=== PATIENT | female | born 1935 | race Caucasian/White ===

== ENCOUNTER 2022-01-20 13:09 | Inpatient (IN) | payer MEDICARE, OTHER ==
[~2022-01-20] VITALS: Ht 157.5 cm; Wt 78.2 kg
[2022-01-20] VITALS (22 sets, daily range): BP systolic 68–191; BP diastolic 26–162
[2022-01-20] MEDS ORDERED: diphenhydrAMINE 25mg capsule PO PRN (13:40)
[2022-01-20] MEDS ORDERED: LORazepam 0.5 MG tablet PO PRN (13:40)
[2022-01-20] MEDS ORDERED: VITAMIN D3 PO (14:16)
[2022-01-20] MEDS ORDERED: TRAZ-251 PO (14:16)
[2022-01-20] MEDS ORDERED: HYDR-3717 PO ×2 (14:16→23:21)
[2022-01-20] MEDS ORDERED: AMLO5TAB16 PO (14:16)
[2022-01-20] MEDS ORDERED: HYDR-3964 PO (14:16)
[2022-01-20] MEDS ORDERED: POTA8TAB69 PO (14:16)
[2022-01-20] MEDS ORDERED: FURO20TA4 PO (14:16)
[2022-01-20] MEDS ORDERED: OMEP40CA21 PO (14:16)
[2022-01-20] MEDS ORDERED: LATA2.5D14 EACHEYE (14:16)
[2022-01-20] MEDS ORDERED: LEVO88TA2 PO (14:16)
[2022-01-20] MEDS ORDERED: ENAL-79 PO (14:16)
[2022-01-20] MEDS ORDERED: FERR325T28 PO (14:17)
[2022-01-20] MEDS ORDERED: verapamil 2.5 mg/ml inj IV ONE (17:59)
[2022-01-20] MEDS ORDERED: iohexol 350MG/ML 100ml bottle IV ONE ×3 (17:59→20:26)
[2022-01-20] MEDS ORDERED: nitroGLYCERIN-Tridil 50MG/D5W 250 ML IV ONE (17:59)
[2022-01-20] MEDS ORDERED: heparin 1,000unit/ml 10ml vial 10 ML ONE (17:59)
[2022-01-20] MEDS ORDERED: LIDOcaine 1%/PF 5ML 10 MG/ML VIAL ONE (17:59)
[2022-01-20] MEDS ORDERED: fentaNYL/PF 50MCG/1 ML 2ML syringe ONE (18:00)
[2022-01-20] MEDS ORDERED: midazolam 1 mg/ML 2ml injection ONE (18:00)
[2022-01-20] MEDS ORDERED: aspirin 325mg tablet ONE (19:08)
[2022-01-20] MEDS ORDERED: clopidogrel 300mg tablet ONE (19:08)
[2022-01-20] MEDS ORDERED: hydrALAZINE 20mg/ml inj. IV ONE (19:24)
--- NOTE | 2022-01-20 19:45 | NUR ---
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 Bedside report received from REYES Avery. Patient with arterial access to right radial artery and venous access to right groin. Hematomas to both sites. Manual pressure applied. Monitoring patient's BP at this time.
--- NOTE | 2022-01-20 19:55 | NUR ---
Manual pressure to groin site. Radial site stable with pressure dressing in place. Femstop applied to groin. Monitoring vital signs.
[2022-01-20] MEDS ORDERED: phenylephrine 10mg/ml inj. ONE (20:22)
[2022-01-20] MEDS ORDERED: morphine 2 MG/ML inj. syringe IV PRN (20:55)
--- NOTE | 2022-01-20 21:26 | NUR ---
Vasc band removed from right radial. Bruising present. Stable with pressure dressing applied.
--- NOTE | 2022-01-20 21:30 | NUR ---
Osvaldo Corrales RN notified pharmacy that Short Stay Crash Cart is unsealed and in breakroom. Pharmacy stated someone will come lock it up.
[2022-01-20 21:41] LABS: ISTAT HGB ART 12.6 g/dl (12.0-16.0); ISTAT Hct ART 37 %PCV (35-48); ISTAT O2 SATURATION ARTERIAL 97 % (95-98); ISTAT SOURCE ART
--- NOTE | 2022-01-20 22:20 | NUR ---
Patient in room PCU 3022. I have received report from edie and had the opportunity to ask questions and assume patient care.
--- NOTE | 2022-01-20 22:30 | NUR ---
Patient admitted to 3022. Bedside report given to NAUN Jones and Gracia, corporate controller. Femstop in place to right groin. Vital signs stable. All questions answered.
[2022-01-20] MEDS ORDERED: HYDROcodone/acetaminophen 5mg/325mg tablet PO PRN ×2 (22:45→22:55)
[2022-01-20] MEDS ORDERED: aspirin 81mg tab.chew PO ONE (22:50)
[2022-01-21] MEDS: normal saline 1,000 ML IV SCH ×3 (00:02→09:41)
[2022-01-21 00:03] LABS: BASOPHILS # (AUTO) 0.1 X10'3 (0-0.2); BASOPHILS % (AUTO) 0.8 % (0-1); EOSINOPHILS % (AUTO) 0.1 % (0-6); LYMPHOCYTES # (AUTO) 1.1 X10'3 (1.1-4.8); LYMPHOCYTES % (AUTO) 12.6 % (21-51); MEAN CORPUSCULAR HEMOGLOBIN 27.8 PG (27.0-31.0); MEAN CORPUSCULAR HGB CONC 33.4 g/dL (33.0-36.5); MEAN CORPUSCULAR VOLUME 83.1 FL (78-98); MEAN PLATELET VOLUME 7.2 FL (7.4-10.4); MONOCYTES # (AUTO) 0.4 X10'3 (0-0.9); NEUTROPHILS # (AUTO) 7.2 X10'3 (1.8-7.7); NEUTROPHILS % (AUTO) 81.5 % (42-75); PLATELET COUNT 248 X10'3 (140-440); RED CELL DISTRIBUTION WIDTH 14.6 % (11.5-14.5); WHITE BLOOD COUNT 8.9 X10'3 (4.5-11.0)
[2022-01-21 02:00] VITALS: BP 153/63
[2022-01-21] MEDS: HYDROcodone/acetaminophen 10/325mg tab PO PRN ×2 (04:27→09:33)
[2022-01-21] MEDS ORDERED: hydrOXYzine 10 MG tablet PO PRN (06:10)
--- NOTE | 2022-01-21 06:15 | NUR ---
Problems reprioritized. Patient report given, questions answered & plan of care reviewed with aby.
--- NOTE | 2022-01-21 06:15 | NUR ---
Patient in room PCU 3022. I have received report from Robert MAGALLON and had the opportunity to ask questions and assume patient care.
[2022-01-21 07:27] VITALS: BP 123/56
[2022-01-21] MEDS ORDERED: cholecalciferol (vitamin D3) 1,000 unit (25mcg) tablet PO SCH (08:00)
[2022-01-21] MEDS ORDERED: ferrous sulfate 325mg tablet PO SCH (08:00)
[2022-01-21] MEDS ORDERED: traZODone 50mg tablet PO SCH (08:00)
[2022-01-21] MEDS ORDERED: levoTHYROXINE 88mcg tablet PO SCH (08:00)
[2022-01-21] MEDS ORDERED: clopidogrel 75mg tablet PO SCH (08:00)
[2022-01-21] MEDS ORDERED: latanoprost 0.005% 2.5ml ophthalmic drops EACHEYE SCH (08:00)
[2022-01-21] MEDS ORDERED: pantoprazole 40mg Tablet.DR PO SCH (08:00)
[2022-01-21] MEDS ORDERED: amLODIPine 5mg tablet PO SCH (08:00)
[2022-01-21] MEDS ORDERED: furosemide 20MG tablet PO SCH (08:00)
[2022-01-21] MEDS ORDERED: lisinopril 20mg tablet PO SCH (08:00)
[2022-01-21] MEDS ORDERED: potassium chloride 8mEq ER tablet PO SCH (08:00)
[2022-01-21] MEDS ORDERED: aspirin 81mg tab.chew PO SCH (08:30)
[2022-01-21 09:31] LABS: ISTAT Hct MIX 39 %PCV (35-48); ISTAT O2 SATURATION MIX VENOUS 73 % (60-80); ISTAT SOURCE VEN
[2022-01-21] MEDS ORDERED: ATOR40TA PO (11:22)
[2022-01-21] MEDS ORDERED: CLOP75TA34 PO (11:22)
[2022-01-21] MEDS ORDERED: ASPI81TA53 PO (11:22)
[2022-01-21 12:14] LABS: BASOPHILS % (AUTO) 0.4 % (0-1); EOSINOPHILS % (AUTO) 0 % (0-6); HEMATOCRIT 32.2 % (35.0-45.0); HEMOGLOBIN 10.8 g/dl (12.0-16.0); LYMPHOCYTES # (AUTO) 1.7 X10'3 (1.1-4.8); LYMPHOCYTES % (AUTO) 22.3 % (21-51); MEAN CORPUSCULAR HGB CONC 33.6 g/dL (33.0-36.5); MEAN CORPUSCULAR VOLUME 83.4 FL (78-98); MEAN PLATELET VOLUME 6.9 FL (7.4-10.4); MONOCYTES # (AUTO) 0.7 X10'3 (0-0.9); MONOCYTES % (AUTO) 8.9 % (2-12); NEUTROPHILS # (AUTO) 5.2 X10'3 (1.8-7.7); NEUTROPHILS % (AUTO) 68.4 % (42-75); PLATELET COUNT 225 X10'3 (140-440); RED BLOOD COUNT 3.86 X10'6 (4.20-5.60); RED CELL DISTRIBUTION WIDTH 14.4 % (11.5-14.5); WHITE BLOOD COUNT 7.6 X10'3 (4.5-11.0)
[2022-01-21 12:26] VITALS: BP 138/59
--- NOTE | 2022-01-21 16:36 | NUR ---
Patient stable for discharge per Dr. Resendiz. All discharge instructions reviewed with patient and all questions answered. Pt verbalized understanding. All new prescriptions collected from [facility] in [place] and Plavix is in hand. PIV discontinued cannula intact. Tele discontinued. All belongings collected and sent with patient. Wheeled to lobby via nursing staff and taken home by family friend.
== END 2022-01-21 17:47 | disposition home or self-care (01) | DRG 247 ==
LOC: SSTAY O 13:09 → UNDOADMOB 19:30 → PCU 3S 19:30 → OBSVTOIN 21:55
PROVIDERS: ADMIT Student in an Organized Health Care Education/Training Program; ATTEND Student in an Organized Health Care Education/Training Program
PROC: 027034Z Dilation of Coronary Artery, One Artery with Drug-eluting Intraluminal Device, Percutaneous Approach (ICD-10-PCS; principal; 2022-01-20)
PROC: 4A023N8 Measurement of Cardiac Sampling and Pressure, Bilateral, Percutaneous Approach (ICD-10-PCS; 2022-01-20)
PROC: B2111ZZ Fluoroscopy of Multiple Coronary Arteries using Low Osmolar Contrast (ICD-10-PCS; 2022-01-20)
PROC: B32T1ZZ Computerized Tomography (CT Scan) of Left Pulmonary Artery using Low Osmolar Contrast (ICD-10-PCS; 2022-01-20)
PROC: B3201ZZ Computerized Tomography (CT Scan) of Thoracic Aorta using Low Osmolar Contrast (ICD-10-PCS; 2022-01-20)
PROC: B32S1ZZ Computerized Tomography (CT Scan) of Right Pulmonary Artery using Low Osmolar Contrast (ICD-10-PCS; 2022-01-20)
PROC: B42H1ZZ Computerized Tomography (CT Scan) of Bilateral Lower Extremity Arteries using Low Osmolar Contrast (ICD-10-PCS; 2022-01-20)
DX: I25.10 Atherosclerotic heart disease of native coronary artery without angina pectoris (principal); E03.9 Hypothyroidism, unspecified; E11.9 Type 2 diabetes mellitus without complications; E78.5 Hyperlipidemia, unspecified; I95.9 Hypotension, unspecified; I08.0 Rheumatic disorders of both mitral and aortic valves; I10 Essential (primary) hypertension; Z87.891 Personal history of nicotine dependence
CPT/HCPCS: 36415; 71275; 74174; 82803; 82948; 85014; 85025; 93005; 97116; 97161; 97530; 99152; 99153; A4314; A4620; A5120; A6258; A6449; C1725; C1751; C1769; C1874; C1894; C9600; G0378; J0360; J1644; J2250; J2270; J2370; J3010; J3490; J7030; Q0163; Q9967

== ENCOUNTER 2022-03-20 11:53 | Outpatient (CLI) | payer MEDICARE, MEDICAID ==
[~2022-03-20 11:53] MED LIST: AMLO5TAB16 PO; ASPI81TA53 PO; CLOP75TA34 PO; ENAL-79 PO; FERR325T28 PO; FURO20TA4 PO; HYDR-3717 PO; HYDR-3964 PO; LATA2.5D14 EACHEYE; LEVO88TA2 PO; OMEP40CA21 PO; POTA8TAB69 PO; TRAZ-251 PO; VITAMIN D3 PO
[2022-03-20 13:12] LABS: BASOPHILS # (AUTO) 0.1 X10'3 (0-0.2); BASOPHILS % (AUTO) 1.9 % (0-1); EOSINOPHILS # (AUTO) 0.2 X10'3 (0-0.9); EOSINOPHILS % (AUTO) 3.4 % (0-6); HEMATOCRIT 39.5 % (35.0-45.0); HEMOGLOBIN 13.1 g/dl (12.0-16.0); LYMPHOCYTES # (AUTO) 1.2 X10'3 (1.1-4.8); LYMPHOCYTES % (AUTO) 26.2 % (21-51); MEAN CORPUSCULAR HEMOGLOBIN 28.2 PG (27.0-31.0); MEAN CORPUSCULAR HGB CONC 33.2 g/dL (33.0-36.5); MEAN CORPUSCULAR VOLUME 84.9 FL (78-98); MEAN PLATELET VOLUME 6.8 FL (7.4-10.4); MONOCYTES # (AUTO) 0.5 X10'3 (0-0.9); MONOCYTES % (AUTO) 10.3 % (2-12); NEUTROPHILS # (AUTO) 2.6 X10'3 (1.8-7.7); NEUTROPHILS % (AUTO) 58.2 % (42-75); PLATELET COUNT 260 X10'3 (140-440); RED BLOOD COUNT 4.65 X10'6 (4.20-5.60); RED CELL DISTRIBUTION WIDTH 14.1 % (11.5-14.5); WHITE BLOOD COUNT 4.5 X10'3 (4.5-11.0)
[2022-03-20 13:23] LABS: APTT 31 SECONDS (22-32)
[2022-03-20 13:25] LABS: ALANINE AMINOTRANSFERASE 34 U/L (12-78); ALBUMIN/GLOBULIN RATIO 0.8 (1.1-1.5); ALKALINE PHOSPHATASE 104 IU/L (46-116); ANION GAP 6 (8-16); ASPARTATE AMINO TRANSFERASE 38 U/L (10-37); BILIRUBIN,TOTAL 0.3 MG/DL (0.1-1.0); BLOOD UREA NITROGEN 13 MG/DL (7-18); BUN/CREATININE RATIO 14.3 (6.6-38.0); CALCIUM 9.4 MG/DL (8.5-10.1); CHLORIDE 103 MMOL/L (99-107); CREATININE 0.91 MG/DL (0.40-0.90); GLUCOSE 105 MG/DL (70-104); SODIUM 139 MMOL/L (135-145); TOTAL PROTEIN 6.9 G/DL (6.4-8.2); eGFR 59 ML/MIN
[2022-03-20] MEDS ORDERED: IODIXANOL 320 MG/ML INFUS..BTL 100ML IV ONE (13:38)
== END 2022-03-20 23:59 | disposition home or self-care (01) ==
LOC: RAD 11:53
PROVIDERS: ATTEND Internal Medicine Cardiovascular Disease
DX: Z01.818 Encounter for other preprocedural examination (principal); K83.8 Other specified diseases of biliary tract; I70.0 Atherosclerosis of aorta; I35.0 Nonrheumatic aortic (valve) stenosis; M47.815 Spondylosis without myelopathy or radiculopathy, thoracolumbar region; M19.012 Primary osteoarthritis, left shoulder; Z87.891 Personal history of nicotine dependence; Z79.82 Long term (current) use of aspirin; Z79.899 Other long term (current) drug therapy; Z90.49 Acquired absence of other specified parts of digestive tract
CPT/HCPCS: 36415; 71046; 71275; 74174; 80053; 85025; 85610; 85730; 94010; 94727; 94729; J3490; Q9967; 71250; 71260

== ENCOUNTER 2022-03-26 08:46 | Outpatient (CLI) | payer MEDICARE, MEDICAID ==
[~2022-03-26] VITALS: Ht 147.3 cm; Wt 78.9 kg
[2022-03-26 15:56] VITALS: BP 209/71
--- NOTE | 2022-03-26 15:57 | NUR ---
Patient and Friend Virginie were in the [facility] clinic today to consult with Dr. Farmer, Dr. Airam Resendiz and Dr. Davis. [facility] Walk test attempted, patient unsteady and unable to complete the test. Vital signs measured. Patient education reviewed and questions answered.
== END 2022-03-26 23:59 | disposition home or self-care (01) ==
LOC: TAVR 08:46
PROVIDERS: ATTEND Internal Medicine Cardiovascular Disease
DX: Z13.6 Encounter for screening for cardiovascular disorders (principal)

== ENCOUNTER 2023-08-07 10:30 | Inpatient (IN) | payer MEDICARE, MEDICAID ==
[~2023-08-07] VITALS: Ht 149.9 cm; Wt 66.5 kg
[2023-08-07] VITALS (7 sets, daily range): BP systolic 120–220; BP diastolic 54–100; PULSE 73–86; RESP 17–22; TEMP 97.5–98.5; O2SAT 90–97
[~2023-08-07 10:30] MED LIST changes: -AMLO5TAB16 PO; -ASPI81TA53 PO; +ATOR40TA71 PO; +CARB15DR EACHEYE; +CARB200C7 PO; +CARV6.253 PO; +CHLO25TA11 PO; +CHOL100025 PO; +CLOP-32 PO; -CLOP75TA34 PO; -ENAL-79 PO; -HYDR-3717 PO; +LIDOCAINE 5% TOP; +NOR5T PO; +POLY119P2 PO; -VITAMIN D3 PO
[2023-08-07 11:35] LABS: BASOPHILS # (AUTO) 0.1 X10'3 (0-0.2); BASOPHILS % (AUTO) 0.7 % (0-1); EOSINOPHILS % (AUTO) 0.1 % (0-6); HEMATOCRIT 26.2 % (35.0-45.0); HEMOGLOBIN 9.1 g/dl (12.0-16.0); LYMPHOCYTES # (AUTO) 0.9 X10'3 (1.1-4.8); LYMPHOCYTES % (AUTO) 11.4 % (21-51); MEAN CORPUSCULAR HEMOGLOBIN 30.9 PG (27.0-31.0); MEAN CORPUSCULAR HGB CONC 34.8 g/dL (33.0-36.5); MEAN CORPUSCULAR VOLUME 88.8 FL (78-98); MEAN PLATELET VOLUME 7.2 FL (7.4-10.4); MONOCYTES # (AUTO) 0.6 X10'3 (0-0.9); MONOCYTES % (AUTO) 7.6 % (2-12); NEUTROPHILS # (AUTO) 6.2 X10'3 (1.8-7.7); NEUTROPHILS % (AUTO) 80.2 % (42-75); PLATELET COUNT 280 X10'3 (140-440); RED BLOOD COUNT 2.96 X10'6 (4.20-5.60); RED CELL DISTRIBUTION WIDTH 16.8 % (11.5-14.5); WHITE BLOOD COUNT 7.7 X10'3 (4.5-11.0)
[2023-08-07] MEDS ORDERED: magnesium 4gm in 100ml NS 100 ML IV PRN (11:35)
[2023-08-07] MEDS ORDERED: magnesium 2GM in 50ml NS 50 ML IV PRN (11:35)
[2023-08-07] MEDS ORDERED: potassium Cl 20 mEq SR tablet PO PRN (11:35)
[2023-08-07] MEDS ORDERED: acetaminophen 325mg tablet PO PRN ×2 (11:35)
[2023-08-07] MEDS ORDERED: potassium Cl 40MEQ/1/2NS 520ml 520 ML IV PRN (11:35)
[2023-08-07] MEDS ORDERED: magnesium Cl slow-release 64mg tablet PO PRN (11:35)
[2023-08-07 11:47] LABS: ALBUMIN 2.4 G/DL (3.4-5.0); ANION GAP 6 (8-16); BLOOD UREA NITROGEN 10 MG/DL (7-18); BUN/CREATININE RATIO 13.2 (10.0-20.0); CALCIUM 7.9 MG/DL (8.5-10.1); CHLORIDE 97 MMOL/L (99-107); CREATININE 0.76 MG/DL (0.40-0.90); GLUCOSE 128 MG/DL (70-104); MAGNESIUM 1.6 MG/DL (1.5-2.4); SODIUM 134 MMOL/L (135-145); TOTAL CARBON DIOXIDE 30.6 MMOL/L (24-32); eCRCL 36 ML/MIN; eGFR 72 ML/MIN
[2023-08-07] MEDS: furosemide 10 MG/1 ML 10ml inj IV ONE (11:52)
[2023-08-07 11:53] LABS: POTASSIUM 3.6 MMOL/L (3.5-5.1)
[2023-08-07] MEDS: nitroGLYCERIN 0.4mg/hour patch TD ONE (11:54)
[2023-08-07 12:35] LABS: OSMOLALITY 271 MOSM/K (280-300)
[2023-08-07] MEDS: ferrous sulfate 325mg tablet PO SCH (16:55)
[2023-08-07] MEDS ORDERED: bisacodyl 5mg tablet.DR PO PRN (16:55)
[2023-08-07] MEDS ORDERED: LIDOcaine 5% patch TP PRN (16:55)
[2023-08-07] MEDS: carvedilol 6.25mg tablet PO SCH (19:53)
[2023-08-07] MEDS: heparin, porcine 5000 units/ml vial SQ SCH (19:54)
[2023-08-07] MEDS ORDERED: furosemide 20 MG/2 ML vial IV SCH (20:00)
[2023-08-07] MEDS: traZODone 50mg tablet PO SCH (21:30)
[2023-08-07] MEDS: PEG 400/HYPROMELLOSE/GLYCERIN 15ml bottle EACHEYE SCH (22:17)
[2023-08-08] VITALS (8 sets, daily range): BP systolic 103–167; BP diastolic 41–64; PULSE 60–78; RESP 17–20; TEMP 98–99.3; O2SAT 94–99
[2023-08-08 06:42] LABS: EOSINOPHILS # (AUTO) 0.1 X10'3 (0-0.9); HEMATOCRIT 24.5 % (35.0-45.0); HEMOGLOBIN 8.3 g/dl (12.0-16.0); LYMPHOCYTES # (AUTO) 1.1 X10'3 (1.1-4.8); LYMPHOCYTES % (AUTO) 21.4 % (21-51); MEAN CORPUSCULAR HEMOGLOBIN 30.4 PG (27.0-31.0); MEAN CORPUSCULAR HGB CONC 33.7 g/dL (33.0-36.5); MEAN CORPUSCULAR VOLUME 90.1 FL (78-98); MEAN PLATELET VOLUME 7.6 FL (7.4-10.4); MONOCYTES # (AUTO) 0.5 X10'3 (0-0.9); MONOCYTES % (AUTO) 9.8 % (2-12); NEUTROPHILS # (AUTO) 3.4 X10'3 (1.8-7.7); NEUTROPHILS % (AUTO) 65.8 % (42-75); PLATELET COUNT 271 X10'3 (140-440); RED BLOOD COUNT 2.72 X10'6 (4.20-5.60); RED CELL DISTRIBUTION WIDTH 17.1 % (11.5-14.5); WHITE BLOOD COUNT 5.2 X10'3 (4.5-11.0)
[2023-08-08 06:54] LABS: ALANINE AMINOTRANSFERASE 16 U/L (12-78); ALBUMIN 1.9 G/DL (3.4-5.0); ALBUMIN/GLOBULIN RATIO 0.6 (1.1-1.5); ALKALINE PHOSPHATASE 90 IU/L (46-116); ANION GAP 8 (8-16); ASPARTATE AMINO TRANSFERASE 47 U/L (10-37); BILIRUBIN,TOTAL 0.5 MG/DL (0.1-1.0); BLOOD UREA NITROGEN 8 MG/DL (7-18); BUN/CREATININE RATIO 9.4 (10.0-20.0); CHLORIDE 100 MMOL/L (99-107); CREATININE 0.85 MG/DL (0.40-0.90); GLUCOSE 95 MG/DL (70-104); POTASSIUM 3.2 MMOL/L (3.5-5.1); SODIUM 138 MMOL/L (135-145); TOTAL CARBON DIOXIDE 29.8 MMOL/L (24-32); TOTAL PROTEIN 5.3 G/DL (6.4-8.2); eCRCL 32 ML/MIN; eGFR 63 ML/MIN
[2023-08-08] MEDS: levoTHYROXINE 88mcg tablet PO SCH (07:39)
[2023-08-08] MEDS ORDERED: polyethylene glycol 3350 17gm powd pack PO PRN (08:25)
[2023-08-08] MEDS: latanoprost 0.005% 2.5ml ophthalmic drops EACHEYE SCH (09:56)
[2023-08-08] MEDS: potassium Cl 20 mEq SR tablet PO PRN (09:58)
[2023-08-08] MEDS: polyethylene glycol 3350 17gm powd pack PO SCH (09:58)
[2023-08-08] MEDS: atorvastatin 20mg tablet PO SCH (09:58)
[2023-08-08] MEDS: cholecalciferol (vitamin D3) 1,000 unit (25mcg) tablet PO SCH (09:59)
[2023-08-08] MEDS: clopidogrel 75mg tablet PO SCH (09:59)
[2023-08-08] MEDS: pantoprazole 40mg Tablet.DR PO SCH (09:59)
[2023-08-08] MEDS: amLODIPine 5mg tablet PO SCH (10:00)
[2023-08-08] MEDS: furosemide 20 MG/2 ML vial IV SCH (10:01)
[2023-08-08] MEDS: ondansetron/PF 4mg/2ml inj IV PRN (12:40)
[2023-08-08] MEDS ORDERED: methylnaltrexone br 12mg/0.6ml inj***SubQ only SQ PRN (12:50)
[2023-08-08 13:33] LABS: HEMOGLOBIN 8.4 g/dl (12.0-16.0); MEAN CORPUSCULAR HEMOGLOBIN 30.5 PG (27.0-31.0); MEAN CORPUSCULAR HGB CONC 33.7 g/dL (33.0-36.5); MEAN CORPUSCULAR VOLUME 90.4 FL (78-98); MEAN PLATELET VOLUME 7.5 FL (7.4-10.4); PLATELET COUNT 272 X10'3 (140-440); RED BLOOD COUNT 2.76 X10'6 (4.20-5.60); RED CELL DISTRIBUTION WIDTH 17.2 % (11.5-14.5); WHITE BLOOD COUNT 5.3 X10'3 (4.5-11.0)
[2023-08-08 14:39] LABS: OCCULT BLOOD STOOL POSITIVE (Neg)
[2023-08-09] VITALS (9 sets, daily range): BP systolic 96–155; BP diastolic 30–49; PULSE 65–70; RESP 14–20; TEMP 97.4–99; O2SAT 10–97
[2023-08-09 06:31] LABS: BASOPHILS # (AUTO) 0.1 X10'3 (0-0.2); BASOPHILS % (AUTO) 1.1 % (0-1); EOSINOPHILS # (AUTO) 0.2 X10'3 (0-0.9); EOSINOPHILS % (AUTO) 5.3 % (0-6); HEMATOCRIT 24.7 % (35.0-45.0); HEMOGLOBIN 8.3 g/dl (12.0-16.0); LYMPHOCYTES # (AUTO) 1.1 X10'3 (1.1-4.8); LYMPHOCYTES % (AUTO) 24.2 % (21-51); MEAN CORPUSCULAR HEMOGLOBIN 30.6 PG (27.0-31.0); MEAN CORPUSCULAR HGB CONC 33.8 g/dL (33.0-36.5); MEAN CORPUSCULAR VOLUME 90.4 FL (78-98); MEAN PLATELET VOLUME 7.4 FL (7.4-10.4); MONOCYTES # (AUTO) 0.5 X10'3 (0-0.9); MONOCYTES % (AUTO) 10.6 % (2-12); NEUTROPHILS # (AUTO) 2.8 X10'3 (1.8-7.7); NEUTROPHILS % (AUTO) 58.8 % (42-75); PLATELET COUNT 254 X10'3 (140-440); RED BLOOD COUNT 2.73 X10'6 (4.20-5.60); RED CELL DISTRIBUTION WIDTH 17.1 % (11.5-14.5); WHITE BLOOD COUNT 4.7 X10'3 (4.5-11.0)
[2023-08-09 06:54] LABS: ALANINE AMINOTRANSFERASE 14 U/L (12-78); ALBUMIN 1.8 G/DL (3.4-5.0); ALBUMIN/GLOBULIN RATIO 0.5 (1.1-1.5); ALKALINE PHOSPHATASE 80 IU/L (46-116); ANION GAP 6 (8-16); ASPARTATE AMINO TRANSFERASE 38 U/L (10-37); BILIRUBIN,TOTAL 0.4 MG/DL (0.1-1.0); BLOOD UREA NITROGEN 21 MG/DL (7-18); BUN/CREATININE RATIO 18.8 (10.0-20.0); CHLORIDE 99 MMOL/L (99-107); CREATININE 1.12 MG/DL (0.40-0.90); GLUCOSE 127 MG/DL (70-104); POTASSIUM 3.6 MMOL/L (3.5-5.1); SODIUM 134 MMOL/L (135-145); TOTAL CARBON DIOXIDE 29.1 MMOL/L (24-32); TOTAL PROTEIN 5.4 G/DL (6.4-8.2); eCRCL 24 ML/MIN; eGFR 46 ML/MIN
[2023-08-09 08:32] LABS: ACANTHOCYTES FEW; ANISOCYTOSIS 1+; BURR CELLS 1+; ELLIPTOCYTES FEW; PLATELET ESTIMATE NORMAL; POLYCHROMASIA FEW
[2023-08-09] MEDS: normal saline 1000ml 1,000 ML IV SCH (08:55)
[2023-08-09] MEDS: polyvinyl alcohol ophthalmic drops 15ml bottle EACHEYE SCH (20:41)
[2023-08-10 02:00] VITALS: BP 146/36; PULSE 64; RESP 16; TEMP 99.8; O2SAT 98
[2023-08-10 06:00] VITALS: O2SAT 96
[2023-08-10 06:40] LABS: BASOPHILS # (AUTO) 0.1 X10'3 (0-0.2); BASOPHILS % (AUTO) 1.2 % (0-1); EOSINOPHILS # (AUTO) 0.3 X10'3 (0-0.9); EOSINOPHILS % (AUTO) 4.2 % (0-6); HEMATOCRIT 24.1 % (35.0-45.0); HEMOGLOBIN 8.3 g/dl (12.0-16.0); LYMPHOCYTES # (AUTO) 1.1 X10'3 (1.1-4.8); LYMPHOCYTES % (AUTO) 17.8 % (21-51); MEAN CORPUSCULAR HGB CONC 34.4 g/dL (33.0-36.5); MEAN PLATELET VOLUME 7.4 FL (7.4-10.4); MONOCYTES # (AUTO) 0.6 X10'3 (0-0.9); MONOCYTES % (AUTO) 9.7 % (2-12); NEUTROPHILS % (AUTO) 67.1 % (42-75); PLATELET COUNT 266 X10'3 (140-440); RED BLOOD COUNT 2.68 X10'6 (4.20-5.60); RED CELL DISTRIBUTION WIDTH 16.9 % (11.5-14.5)
[2023-08-10 06:57] LABS: ALANINE AMINOTRANSFERASE 18 U/L (12-78); ALBUMIN/GLOBULIN RATIO 0.6 (1.1-1.5); ALKALINE PHOSPHATASE 83 IU/L (46-116); ANION GAP 4 (8-16); ASPARTATE AMINO TRANSFERASE 44 U/L (10-37); BILIRUBIN,TOTAL 0.6 MG/DL (0.1-1.0); BLOOD UREA NITROGEN 19 MG/DL (7-18); BUN/CREATININE RATIO 24.1 (10.0-20.0); CALCIUM 7.9 MG/DL (8.5-10.1); CHLORIDE 97 MMOL/L (99-107); CREATININE 0.79 MG/DL (0.40-0.90); GLUCOSE 104 MG/DL (70-104); SODIUM 132 MMOL/L (135-145); TOTAL CARBON DIOXIDE 30.7 MMOL/L (24-32); TOTAL PROTEIN 5.6 G/DL (6.4-8.2); eCRCL 34 ML/MIN; eGFR 69 ML/MIN
[2023-08-10 07:00] VITALS: BP 147/71; PULSE 71; RESP 13; TEMP 98.9; O2SAT 97
[2023-08-10 08:00] VITALS: BP_SYST 100; BP_SYST 112; BP_DIAS 47; BP_DIAS 50; PULSE 66; PULSE 70; RESP 18; O2SAT 95
[2023-08-10] MEDS: carBAMazepine Ext. Release 200 MG TAB.ER.12H PO PRN (09:42)
[2023-08-10 11:00] VITALS: BP 112/47; PULSE 69; RESP 12; TEMP 98.1; O2SAT 95
[2023-08-10] MEDS: HYDROcodone/acetaminophen 5mg/325mg tablet PO PRN (13:01)
[2023-08-10 14:01] VITALS: RESP 16
== END 2023-08-10 15:15 | DRG 280 ==
LOC: ER 10:30 → ED HOLD 11:37 → PCU 3S 15:33
PROVIDERS: ADMIT Internal Medicine; ATTEND Internal Medicine
DX: I11.0 Hypertensive heart disease with heart failure (principal); I21.A1 Myocardial infarction type 2; I50.33 Acute on chronic diastolic (congestive) heart failure; E87.1 Hypo-osmolality and hyponatremia; F41.9 Anxiety disorder, unspecified; R09.02 Hypoxemia; D64.9 Anemia, unspecified; F11.21 Opioid dependence, in remission; R06.03 Acute respiratory distress; K59.09 Other constipation; E87.6 Hypokalemia; T50.2X5A Adverse effect of carbonic-anhydrase inhibitors, benzothiadiazides and other diuretics, initial encounter; Z88.0 Allergy status to penicillin; Z88.2 Allergy status to sulfonamides; Z88.5 Allergy status to narcotic agent; Z99.81 Dependence on supplemental oxygen; Z95.0 Presence of cardiac pacemaker; Y92.89 Other specified places as the place of occurrence of the external cause
CPT/HCPCS: 36415; 71045; 74018; 80048; 80053; 82272; 82948; 83735; 83930; 84132; 84484; 85008; 85025; 85027; 87081; 93005; 93308; 97116; 97161; 97530; 97535; 99291; A4338; A4615; G0378; J1644; J1940; J2405; J7030

== ENCOUNTER 2023-12-02 14:34 | Inpatient (IN) | payer MEDICARE, MEDICAID ==
[~2023-12-02] VITALS: Ht 149.9 cm; Wt 77.9 kg
[2023-12-02] VITALS (8 sets, daily range): BP systolic 98–146; BP diastolic 39–79; PULSE 68–78; RESP 15–26; TEMP 98.2; O2SAT 94–100
[2023-12-02 14:53] LABS: OCCULT BLOOD STOOL POSITIVE (Neg)
[2023-12-02] MEDS: pantoprazole 40 MG vial IV ONE (15:18)
[2023-12-02] MEDS: pantoprazole 40MG/NS 100ML BAG 100 ML IV ONE (15:19)
[2023-12-02 15:30] LABS: BASOPHILS # (AUTO) 0.1 X10'3 (0-0.2); BASOPHILS % (AUTO) 1.3 % (0-1); EOSINOPHILS # (AUTO) 0.3 X10'3 (0-0.9); EOSINOPHILS % (AUTO) 4.5 % (0-6); LYMPHOCYTES # (AUTO) 1.9 X10'3 (1.1-4.8); LYMPHOCYTES % (AUTO) 33.6 % (21-51); MEAN CORPUSCULAR HEMOGLOBIN 25.3 PG (27.0-31.0); MEAN CORPUSCULAR HGB CONC 32.9 g/dL (33.0-36.5); MEAN CORPUSCULAR VOLUME 76.8 FL (78-98); MONOCYTES # (AUTO) 0.5 X10'3 (0-0.9); MONOCYTES % (AUTO) 8.6 % (2-12); PLATELET COUNT 214 X10'3 (140-440); RED BLOOD COUNT 2.35 X10'6 (4.20-5.60); RED CELL DISTRIBUTION WIDTH 21.3 % (11.5-14.5); WHITE BLOOD COUNT 5.8 X10'3 (4.5-11.0)
[2023-12-02 15:39] LABS: HEMATOCRIT 18.1 % (35.0-45.0); HEMOGLOBIN 5.9 g/dl (12.0-16.0)
[2023-12-02] MEDS ORDERED: HUM PROTHROMB CPLX-LANS 0 UNIT IV ONE (15:40)
[2023-12-02] MEDS ORDERED: WATER FOR INJECTION IV ONE (15:50)
[2023-12-02] MEDS ORDERED: STERILE IV ONE (15:50)
[2023-12-02] MEDS ORDERED: HUM PROTHROMB CPLX LANS IV ONE (15:50)
[2023-12-02 15:51] LABS: ALBUMIN 2.3 G/DL (3.4-5.0); ANION GAP 6 (8-16); BLOOD UREA NITROGEN 84 MG/DL (7-18); BUN/CREATININE RATIO 44.9 (10.0-20.0); CALCIUM 8.5 MG/DL (8.5-10.1); CHLORIDE 92 MMOL/L (99-107); CREATININE 1.87 MG/DL (0.40-0.90); GLUCOSE 109 MG/DL (70-104); POTASSIUM 5.3 MMOL/L (3.5-5.1); PRO BRAIN NATRIURETIC PEPTIDE 2902 PG/ML (0-450); TOTAL CARBON DIOXIDE 22.4 MMOL/L (24-32); eCRCL 14 ML/MIN; eGFR 25 ML/MIN
[2023-12-02 16:01] LABS: SODIUM 120 MMOL/L (135-145)
[2023-12-02 16:16] LABS: INR 1.1 INR; PROTHROMBIN TIME 11.8 SECONDS (9.0-12.0)
[2023-12-02 16:23] LABS: ANISOCYTOSIS 3+; MICROCYTOSIS 1+; PLATELET ESTIMATE NORMAL
[2023-12-02 16:24] LABS: ACANTHOCYTES FEW; BURR CELLS 2+; ROULEAUX 1+; SCHISTOCYTES FEW; TARGET CELLS FEW
[2023-12-02] MEDS ORDERED: fentaNYL/PF 50MCG/1 ML 2ML syringe ONE (16:56)
[2023-12-02] MEDS ORDERED: MIDAZolam 1 MG/ML 5ML VIAL ONE (16:56)
[2023-12-02] MEDS ORDERED: magnesium hydroxide 30ml (MOM) UD suspension PO PRN (18:10)
[2023-12-02] MEDS ORDERED: potassium Cl 20 mEq SR tablet PO PRN ×2 (18:10)
[2023-12-02] MEDS ORDERED: ondansetron/PF 4mg/2ml inj IV PRN (18:10)
[2023-12-02] MEDS ORDERED: magnesium sulf-water 4G/100mL 100 ML IV PRN (18:10)
[2023-12-02] MEDS ORDERED: magnesium sulf-water 2g/50mL 50 ML IV PRN (18:10)
[2023-12-02] MEDS ORDERED: potassium Cl 40MEQ/1/2NS 520ml 520 ML IV PRN (18:10)
[2023-12-02] MEDS ORDERED: mag hydrox/Alum hydrox/simeth 30ml oral suspension PO PRN (18:10)
[2023-12-02] MEDS ORDERED: magnesium Cl slow-release 64mg tablet PO PRN (18:10)
[2023-12-02 18:36] LABS: MAGNESIUM 1.9 MG/DL (1.5-2.4)
[2023-12-02] MEDS: K and/or MAG REPLACEMENT MC SCH (20:00)
[2023-12-02] MEDS: normal saline 1000ml 1,000 ML IV SCH (20:23)
[2023-12-02] MEDS: PEG 3350/Na sulf,bicarb,Cl/KCl oral sol 4 liter bottle PO ONE (20:23)
[2023-12-02] MEDS: pantoprazole 40 MG vial IV SCH (20:23)
[2023-12-02] MEDS: dextrose 50%-water 50ml dispensing syringe IV ONE (20:35)
[2023-12-02] MEDS: insulin regular, human 10 units/0.1 ml syringe IV ONE (20:35)
[2023-12-03] VITALS (8 sets, daily range): BP systolic 88–149; BP diastolic 30–69; PULSE 62–88; RESP 12–19; TEMP 97.4–98.1; O2SAT 94–99
[2023-12-03] MEDS: acetaminophen 325mg tablet PO PRN (00:06)
[2023-12-03 01:20] LABS: MEAN CORPUSCULAR HEMOGLOBIN 25.5 PG (27.0-31.0); MEAN CORPUSCULAR HGB CONC 32.9 g/dL (33.0-36.5); MEAN CORPUSCULAR VOLUME 77.4 FL (78-98); MEAN PLATELET VOLUME 6.7 FL (7.4-10.4); PLATELET COUNT 239 X10'3 (140-440); RED BLOOD COUNT 2.53 X10'6 (4.20-5.60); RED CELL DISTRIBUTION WIDTH 21.6 % (11.5-14.5); WHITE BLOOD COUNT 5.7 X10'3 (4.5-11.0)
[2023-12-03 01:31] LABS: HEMOGLOBIN 6.4 g/dl (12.0-16.0)
[2023-12-03 01:32] LABS: HEMATOCRIT 19.6 % (35.0-45.0)
[2023-12-03] MEDS: morphine 2 MG/ML inj. syringe IV ONE (01:43)
[2023-12-03 07:48] LABS: BASOPHILS # (AUTO) 0.1 X10'3 (0-0.2); BASOPHILS % (AUTO) 1.8 % (0-1); EOSINOPHILS # (AUTO) 0.2 X10'3 (0-0.9); EOSINOPHILS % (AUTO) 4.4 % (0-6); LYMPHOCYTES # (AUTO) 1.3 X10'3 (1.1-4.8); LYMPHOCYTES % (AUTO) 27.8 % (21-51); MEAN CORPUSCULAR HEMOGLOBIN 25.2 PG (27.0-31.0); MEAN CORPUSCULAR HGB CONC 32.4 g/dL (33.0-36.5); MEAN CORPUSCULAR VOLUME 77.9 FL (78-98); MEAN PLATELET VOLUME 7.5 FL (7.4-10.4); MONOCYTES # (AUTO) 0.4 X10'3 (0-0.9); MONOCYTES % (AUTO) 9.4 % (2-12); NEUTROPHILS # (AUTO) 2.6 X10'3 (1.8-7.7); NEUTROPHILS % (AUTO) 56.6 % (42-75); PLATELET COUNT 238 X10'3 (140-440); RED BLOOD COUNT 2.53 X10'6 (4.20-5.60); RED CELL DISTRIBUTION WIDTH 22.5 % (11.5-14.5); WHITE BLOOD COUNT 4.6 X10'3 (4.5-11.0)
[2023-12-03 07:54] LABS: HEMATOCRIT 19.7 % (35.0-45.0); HEMOGLOBIN 6.4 g/dl (12.0-16.0)
[2023-12-03 08:13] LABS: ALANINE AMINOTRANSFERASE 24 U/L (12-78); ALBUMIN 2.4 G/DL (3.4-5.0); ALBUMIN/GLOBULIN RATIO 0.7 (1.1-1.5); ALKALINE PHOSPHATASE 84 IU/L (46-116); ANION GAP 7 (8-16); ASPARTATE AMINO TRANSFERASE 33 U/L (10-37); BILIRUBIN,TOTAL 0.6 MG/DL (0.1-1.0); BLOOD UREA NITROGEN 70 MG/DL (7-18); CALCIUM 8.7 MG/DL (8.5-10.1); CHLORIDE 98 MMOL/L (99-107); CHOL/HDL RATIO 2.9 (0.00-4.99); CHOLESTEROL 129 MG/DL (0-200); CREATININE 1.49 MG/DL (0.40-0.90); GLUCOSE 102 MG/DL (70-104); HDL CHOLESTEROL 44 MG/DL (35-60); LDL CHOLESTEROL 65 MG/DL (50-100); POTASSIUM 5.4 MMOL/L (3.5-5.1); SODIUM 128 MMOL/L (135-145); THYROID STIMULATING HORMONE 2.11 ulU/ml (0.34-4.50); TOTAL CARBON DIOXIDE 23.5 MMOL/L (24-32); TRIGLYCERIDES 104 MG/DL (20-135); eCRCL 18 ML/MIN; eGFR 33 ML/MIN
[2023-12-03 08:39] LABS: OSMOLALITY 286 MOSM/K (280-300)
[2023-12-03] MEDS: ferrous sulfate 325mg tablet PO SCH (08:50)
[2023-12-03] MEDS ORDERED: LIDOcaine 5% patch TP PRN (08:55)
[2023-12-03 09:19] LABS: % IRON SATURATION 4 % (11-46); IRON 20 UG/DL (49-151); TOTAL IRON BINDING CAPACITY 535 UG/DL (259-388)
[2023-12-03 09:35] LABS: FERRITIN 65 NG/ML (8-252)
[2023-12-03] MEDS: sodium polystyrene sulfonate 15gm/60ml oral suspension PO ONE (09:46)
[2023-12-03] MEDS: HYDROcodone/acetaminophen 5mg/325mg tablet PO PRN (09:50)
[2023-12-03] MEDS: insulin regular, human 10 units/0.1 ml syringe IV ONE (10:05)
[2023-12-03] MEDS: dextrose 50%-water 50ml dispensing syringe IV ONE ×2 (10:13→14:17)
[2023-12-03] MEDS: sodium ferric gluc complex inj 125 MG in normal saline 100ml IV soln 100 ML IV SCH (13:04)
[2023-12-03] MEDS: polyvinyl alcohol eye drops 15ML BOTTLE EACHEYE SCH (13:07)
[2023-12-03] MEDS: carBAMazepine Ext. Release 200 MG TAB.ER.12H PO PRN (13:11)
[2023-12-03 15:49] LABS: BASOPHILS # (AUTO) 0.1 X10'3 (0-0.2); BASOPHILS % (AUTO) 1.3 % (0-1); EOSINOPHILS # (AUTO) 0.1 X10'3 (0-0.9); EOSINOPHILS % (AUTO) 2.1 % (0-6); LYMPHOCYTES # (AUTO) 1.1 X10'3 (1.1-4.8); LYMPHOCYTES % (AUTO) 22.5 % (21-51); MEAN CORPUSCULAR HGB CONC 32.3 g/dL (33.0-36.5); MEAN CORPUSCULAR VOLUME 77.5 FL (78-98); MONOCYTES # (AUTO) 0.5 X10'3 (0-0.9); MONOCYTES % (AUTO) 10.3 % (2-12); NEUTROPHILS % (AUTO) 63.8 % (42-75); PLATELET COUNT 229 X10'3 (140-440); RED BLOOD COUNT 2.36 X10'6 (4.20-5.60); WHITE BLOOD COUNT 4.7 X10'3 (4.5-11.0)
[2023-12-03 15:57] LABS: HEMATOCRIT 18.3 % (35.0-45.0); HEMOGLOBIN 5.9 g/dl (12.0-16.0)
[2023-12-03 16:01] LABS: ALANINE AMINOTRANSFERASE 23 U/L (12-78); ALBUMIN 2.3 G/DL (3.4-5.0); ALBUMIN/GLOBULIN RATIO 0.7 (1.1-1.5); ALKALINE PHOSPHATASE 82 IU/L (46-116); ANION GAP 8 (8-16); ASPARTATE AMINO TRANSFERASE 29 U/L (10-37); BILIRUBIN,TOTAL 0.4 MG/DL (0.1-1.0); BLOOD UREA NITROGEN 57 MG/DL (7-18); BUN/CREATININE RATIO 42.5 (10.0-20.0); CALCIUM 8.8 MG/DL (8.5-10.1); CHLORIDE 100 MMOL/L (99-107); CREATININE 1.34 MG/DL (0.40-0.90); GLUCOSE 139 MG/DL (70-104); POTASSIUM 4.5 MMOL/L (3.5-5.1); SODIUM 132 MMOL/L (135-145); TOTAL CARBON DIOXIDE 23.6 MMOL/L (24-32); TOTAL PROTEIN 5.7 G/DL (6.4-8.2); eCRCL 20 ML/MIN; eGFR 37 ML/MIN
[2023-12-03] MEDS: dextrose 5%-1/2 normal saline 1,000 ML IV SCH (16:35)
[2023-12-03] MEDS: sodium polystyrene sulfonate 15gm/60ml oral suspension PO SCH (18:00)
[2023-12-03] MEDS: traZODone 50mg tablet PO SCH (21:36)
[2023-12-03] MEDS: carvedilol 6.25mg tablet PO SCH (21:36)
[2023-12-03] MEDS: dextrose 5%-normal saline 1,000 ML IV SCH (23:09)
[2023-12-04] VITALS (25 sets, daily range): BP systolic 94–165; BP diastolic 38–94; PULSE 84–151; RESP 12–32; TEMP 97–102.2; O2SAT 92–98
[2023-12-04] MEDS: temazepam 15mg capsule PO ONE (02:49)
[2023-12-04 07:21] LABS: BASOPHILS # (AUTO) 0.1 X10'3 (0-0.2); BASOPHILS % (AUTO) 1.4 % (0-1); EOSINOPHILS # (AUTO) 0.1 X10'3 (0-0.9); EOSINOPHILS % (AUTO) 1.5 % (0-6); LYMPHOCYTES # (AUTO) 1.2 X10'3 (1.1-4.8); LYMPHOCYTES % (AUTO) 25.2 % (21-51); MEAN CORPUSCULAR HEMOGLOBIN 25.2 PG (27.0-31.0); MEAN CORPUSCULAR HGB CONC 32.6 g/dL (33.0-36.5); MEAN CORPUSCULAR VOLUME 77.2 FL (78-98); MEAN PLATELET VOLUME 6.8 FL (7.4-10.4); MONOCYTES # (AUTO) 0.4 X10'3 (0-0.9); NEUTROPHILS # (AUTO) 2.9 X10'3 (1.8-7.7); NEUTROPHILS % (AUTO) 62.9 % (42-75); PLATELET COUNT 223 X10'3 (140-440); RED BLOOD COUNT 2.22 X10'6 (4.20-5.60); RED CELL DISTRIBUTION WIDTH 22.3 % (11.5-14.5); WHITE BLOOD COUNT 4.7 X10'3 (4.5-11.0)
[2023-12-04 07:30] LABS: HEMATOCRIT 17.1 % (35.0-45.0); HEMOGLOBIN 5.6 g/dl (12.0-16.0)
[2023-12-04 07:49] LABS: ALANINE AMINOTRANSFERASE 20 U/L (12-78); ALBUMIN 2.2 G/DL (3.4-5.0); ALBUMIN/GLOBULIN RATIO 0.7 (1.1-1.5); ALKALINE PHOSPHATASE 79 IU/L (46-116); ANION GAP 7 (8-16); ASPARTATE AMINO TRANSFERASE 28 U/L (10-37); BILIRUBIN,TOTAL 0.5 MG/DL (0.1-1.0); BLOOD UREA NITROGEN 39 MG/DL (7-18); BUN/CREATININE RATIO 38.6 (10.0-20.0); CALCIUM 8.8 MG/DL (8.5-10.1); CHLORIDE 100 MMOL/L (99-107); CREATININE 1.01 MG/DL (0.40-0.90); GLUCOSE 109 MG/DL (70-104); POTASSIUM 4.9 MMOL/L (3.5-5.1); SODIUM 129 MMOL/L (135-145); TOTAL CARBON DIOXIDE 22.3 MMOL/L (24-32); TOTAL PROTEIN 5.5 G/DL (6.4-8.2); eCRCL 27 ML/MIN; eGFR 52 ML/MIN
[2023-12-04 08:00] LABS: ACANTHOCYTES 1+; ANISOCYTOSIS 3+; MICROCYTOSIS 1+; PLATELET ESTIMATE NORMAL; POLYCHROMASIA 1+; SCHISTOCYTES FEW
[2023-12-04] MEDS: cholecalciferol (vitamin D3) 1,000 unit (25mcg) tablet PO SCH (08:00)
[2023-12-04] MEDS: atorvastatin 20mg tablet PO SCH (08:00)
[2023-12-04] MEDS: latanoprost 0.005% 2.5ml ophthalmic drops EACHEYE SCH (08:00)
[2023-12-04] MEDS ORDERED: fentaNYL/PF 50MCG/1 ML 2ML syringe ONE (09:33)
[2023-12-04] MEDS ORDERED: MIDAZolam 1 MG/ML 5ML VIAL ONE (09:33)
[2023-12-04] MEDS: haloperidol lactate 5mg/ml inj IM ONE ×2 (15:51→16:56)
[2023-12-04] MEDS: ringers solution, lactated 500ml IV solution IV ONE (16:06)
[2023-12-04] MEDS: diltiazem 5mg/ml 5ml inj. IV ONE (16:37)
[2023-12-04] MEDS: diltiazem-NS 100mg/100ml 100 ML IV SCH (16:47)
[2023-12-04] MEDS: acetaminophen 1,000mg/100ml IV 100 ML IV ONE (17:08)
[2023-12-04] MEDS: CefTRIAXone/D5W-Rocephin 1gm 50 ML IV ONE (17:18)
[2023-12-04] MEDS: morphine 10mg/0.5ml (conc. morphine) oral syringe PO PRN (19:31)
[2023-12-04] MEDS: scopolamine 1MG/72H patch 1 PATCH PATCH.TD.3 TD SCH (21:48)
[2023-12-04] MEDS ORDERED: LORazepam 2 mg/ml vial IV PRN (23:20)
[2023-12-04] MEDS ORDERED: docusate sod 100mg capsule PO PRN (23:20)
[2023-12-04] MEDS: LORazepam 2 mg/ml vial IV PRN (23:43)
[2023-12-05] MEDS: morphine 2 MG/ML inj. syringe IV PRN (01:27)
[2023-12-05 02:00] VITALS: BP 122/71; PULSE 83; TEMP 98.4
[2023-12-05] MEDS: LORazepam 2 mg/ml vial IV PRN (02:24)
[2023-12-05 06:30] VITALS: BP 105/55; PULSE 73; RESP 14; TEMP 97.4; O2SAT 97
[2023-12-05 19:55] VITALS: RESP 20; O2SAT 98
[2023-12-05 20:03] VITALS: PULSE 122; RESP 20
[2023-12-05] MEDS: polyvinyl alcohol eye drops 15ML BOTTLE EACHEYE SCH (21:00)
[2023-12-06 07:29] VITALS: BP 135/60; PULSE 90; RESP 21; TEMP 97.8; O2SAT 98
[2023-12-06 08:00] VITALS: RESP 20; O2SAT 98
[2023-12-06 09:15] VITALS: RESP 20; O2SAT 98
[2023-12-06 20:00] VITALS: BP 152/90; PULSE 99; RESP 16; RESP 20; TEMP 97.4; O2SAT 98
[2023-12-07 08:00] VITALS: BP 144/69; PULSE 84; RESP 16; RESP 18; TEMP 97.7; O2SAT 100; O2SAT 90
[2023-12-07 18:00] VITALS: BP 171/85; PULSE 98; RESP 18; TEMP 97.7; O2SAT 98
[2023-12-07 20:00] VITALS: PULSE 150; RESP 16; TEMP 97.7; O2SAT 90
[2023-12-08 06:00] VITALS: BP 159/101; PULSE 99; RESP 20; TEMP 97.3; O2SAT 100
[2023-12-08 08:00] VITALS: BP 159/101; PULSE 105; RESP 20; TEMP 97.3; O2SAT 100
[2023-12-08 09:30] VITALS: RESP 20; O2SAT 100
[2023-12-08 18:00] VITALS: BP 101/39; PULSE 75; RESP 20; TEMP 97; O2SAT 100
[2023-12-08 20:00] VITALS: BP 101/39; PULSE 75; RESP 16; RESP 20; TEMP 97; O2SAT 100; O2SAT 90
[2023-12-08 22:00] VITALS: BP 120/74; PULSE 83; RESP 16; TEMP 97.4; O2SAT 100
[2023-12-09 07:00] VITALS: BP 155/58; PULSE 95; RESP 16; TEMP 98.7; O2SAT 95
[2023-12-09 08:30] VITALS: RESP 16; O2SAT 95
[2023-12-09 16:32] VITALS: RESP 16
== END 2023-12-09 17:05 | DRG 377 ==
LOC: ER 14:35 → ED HOLD 18:14 → PCU 3S 22:40 → SUR 3N 12-07 18:05
PROVIDERS: ADMIT Family Medicine; ATTEND Family Medicine
PROC: 0DJD8ZZ Inspection of Lower Intestinal Tract, Via Natural or Artificial Opening Endoscopic (ICD-10-PCS; principal; 2023-12-02)
PROC: 0DBH8ZX Excision of Cecum, Via Natural or Artificial Opening Endoscopic, Diagnostic (ICD-10-PCS; 2023-12-04)
PROC: 0DBP8ZX Excision of Rectum, Via Natural or Artificial Opening Endoscopic, Diagnostic (ICD-10-PCS; 2023-12-04)
PROC: 0DBM8ZX Excision of Descending Colon, Via Natural or Artificial Opening Endoscopic, Diagnostic (ICD-10-PCS; 2023-12-04)
DX: K92.1 Melena (principal); I21.A1 Myocardial infarction type 2; N17.0 Acute kidney failure with tubular necrosis; E87.1 Hypo-osmolality and hyponatremia; I13.0 Hypertensive heart and chronic kidney disease with heart failure and stage 1 through stage 4 chronic kidney disease, or unspecified chronic kidney disease; I50.32 Chronic diastolic (congestive) heart failure; E03.9 Hypothyroidism, unspecified; D50.0 Iron deficiency anemia secondary to blood loss (chronic); E11.22 Type 2 diabetes mellitus with diabetic chronic kidney disease; E78.5 Hyperlipidemia, unspecified; F41.9 Anxiety disorder, unspecified; I25.10 Atherosclerotic heart disease of native coronary artery without angina pectoris; I48.0 Paroxysmal atrial fibrillation; N18.9 Chronic kidney disease, unspecified; Z79.01 Long term (current) use of anticoagulants; Z87.891 Personal history of nicotine dependence; Z95.2 Presence of prosthetic heart valve; Z95.5 Presence of coronary angioplasty implant and graft; E87.5 Hyperkalemia
CPT/HCPCS: 36415; 43235; 45385; 71045; 80048; 80053; 80061; 82272; 82728; 82947; 82948; 83540; 83550; 83605; 83735; 83880; 83930; 84100; 84145; 84443; 84484; 85008; 85025; 85027; 85610; 87040; 87081; 88305; 93005; 99152; 99291; A4314; A4615; A4620; A5200; A6455; C1889; G0378; J0131; J0696; J1630; J1815; J2060; J2250; J2270; J2470; J2916; J3010; J3490; J7030; J7040; J7042; J7120